=== PATIENT | female | born 1975 | race Two or more races ===

== ENCOUNTER → 2017-08-11 | Emergency (ER) | payer OTHER ==
[~2017-08-11] VITALS: Ht 157.5 cm; Wt 72.6 kg
== END | disposition home or self-care (01) ==
LOC: ER 12:15
DX: K57.32 Diverticulitis of large intestine without perforation or abscess without bleeding (principal); R10.31 Right lower quadrant pain

== ENCOUNTER 2021-08-22 14:36 | Inpatient (IN) | payer OTHER ==
[~2021-08-22] VITALS: Ht 154.9 cm; Wt 71.7 kg
== END 2021-08-26 16:49 | disposition home or self-care (01) | DRG 439 ==
LOC: ER 14:36 → MEDI 08-23 09:30
PROVIDERS: ADMIT Internal Medicine; ATTEND Internal Medicine
PROC: BW21YZZ Computerized Tomography (CT Scan) of Abdomen and Pelvis using Other Contrast (ICD-10-PCS; principal; 2021-08-23)
DX: K85.90 Acute pancreatitis without necrosis or infection, unspecified (principal); N39.0 Urinary tract infection, site not specified; K57.92 Diverticulitis of intestine, part unspecified, without perforation or abscess without bleeding; R10.13 Epigastric pain; K29.80 Duodenitis without bleeding; Z20.822 Contact with and (suspected) exposure to COVID-19